=== PATIENT | female | born 1995 | race Two or more races ===

== ENCOUNTER 2024-01-27 19:32 | Emergency (ER) | payer OTHER ==
[~2024-01-27] VITALS: Ht 157.5 cm; Wt 78.9 kg
[2024-01-27] MEDS ORDERED: TETANUS & DIPHTHERIA TOX,ADULT 0.5 ML VIAL IM ONE (22:00)
[2024-01-27 23:13] LABS: HEMATOCRIT 30.2 % (36.0-45.00); HEMOGLOBIN 9.4 g/dL (12.0-15.00); MEAN CORPUSCULAR HEMOGLOBIN 21.6 pg (27.00-32.0); MEAN CORPUSCULAR HGB CONC 31.3 g/dl (32.0-36.0); PLATELET COUNT 283 K/uL (150-450); RED BLOOD COUNT 4.36 M/uL (4.00-6.00); RED CELL DISTRIBUTION WIDTH 17.5 % (11.5-14.5)
[2024-01-27 23:14] LABS: MEAN CELL VOLUME 69.2 fL (80.00-100.00)
[2024-01-27 23:49] LABS: CALCIUM 9.4 mg/dL (8.5-10.1); CREATININE SERUM 0.59 mg/dL (0.55-1.02); GFR 123.21; POTASSIUM 3.53 mEq/L (3.5-5.1)
[2024-01-28] MEDS ORDERED: MUPIROCIN1 G1 TOP (02:26)
[2024-01-28] MEDS ORDERED: CEPHALEXIN500 MG PO (02:26)
== END 2024-01-28 02:29 ==
LOC: ER 19:32
PROVIDERS: General Practice
DX: O26.891 Other specified pregnancy related conditions, first trimester (principal); S61.101A Unspecified open wound of right thumb with damage to nail, initial encounter; S39.91XA Unspecified injury of abdomen, initial encounter; W18.39XA Other fall on same level, initial encounter; Y93.89 Activity, other specified; Y92.89 Other specified places as the place of occurrence of the external cause; Y99.9 Unspecified external cause status; Z3A.08 8 weeks gestation of pregnancy; Z88.6 Allergy status to analgesic agent

== ENCOUNTER → 2024-01-29 | Emergency (ER) | payer OTHER ==
[~2024-01-29] MED LIST: CEPHALEXIN500 MG PO; MUPIROCIN1 G1 TOP
== END | disposition home or self-care (01) ==
LOC: ER 09:31
DX: O99.891 Other specified diseases and conditions complicating pregnancy (principal); Z3A.01 Less than 8 weeks gestation of pregnancy; Z88.6 Allergy status to analgesic agent; S61.121A Laceration with foreign body of right thumb with damage to nail, initial encounter; W18.39XA Other fall on same level, initial encounter; Y93.89 Activity, other specified; Y92.89 Other specified places as the place of occurrence of the external cause; S39.91XA Unspecified injury of abdomen, initial encounter

== ENCOUNTER 2024-03-06 10:47 | Outpatient (CLI) | payer OTHER | END 2024-03-06 10:48 | disposition home or self-care (01) | LOC: PRENATAL 10:47 | PROVIDERS: ATTEND Obstetrics & Gynecology Maternal & Fetal Medicine | DX: O36.80X0 Pregnancy with inconclusive fetal viability, not applicable or unspecified (principal); Z36.82 Encounter for antenatal screening for nuchal translucency; Z36.9 Encounter for antenatal screening, unspecified; Z3A.13 13 weeks gestation of pregnancy ==

== ENCOUNTER 2024-06-16 09:22 | Outpatient (CLI) | payer OTHER ==
[~2024-06-16] VITALS: Ht 157.5 cm; Wt 81.6 kg
[2024-06-16] MEDS ORDERED: PRENATAL TABLE1 EAC1 PO (09:25)
== END 2024-06-16 13:48 | disposition home or self-care (01) ==
LOC: OBS/DEL 09:22
PROVIDERS: ATTEND Obstetrics & Gynecology
DX: O36.5920 Maternal care for other known or suspected poor fetal growth, second trimester, not applicable or unspecified (principal); Z3A.27 27 weeks gestation of pregnancy; O26.849 Uterine size-date discrepancy, unspecified trimester; O36.8199 Decreased fetal movements, unspecified trimester, other fetus; O36.5990 Maternal care for other known or suspected poor fetal growth, unspecified trimester, not applicable or unspecified; O60.00 Preterm labor without delivery, unspecified trimester

== ENCOUNTER 2024-07-02 17:22 | Emergency (ER) | payer OTHER ==
[~2024-07-02] VITALS: Ht 157.5 cm; Wt 83.5 kg
[~2024-07-02 17:22] MED LIST changes: +PRENATAL TABLE1 EAC1 PO
[2024-07-02 18:39] LABS: URINE APPEARANCE Cloudy; URINE BILIRRUBIN Negative (NEGATIVE); URINE BLOOD Moderate; URINE COLOR Dark Yellow; URINE GLUCOSE Negative (NEGATIVE); URINE KETONE Trace (NEGATIVE); URINE LEUKOCYTE Moderate; URINE NITRATE Negative; URINE PROTEIN 30 (NEGATIVE)
[2024-07-02 18:43] LABS: URINE BACTERIA 2703.7 uL (0.0-1933); URINE EPITHELIAL CELLS 47.7 uL (0.0-38.8); URINE RBC 123.6 uL (0.0-20.8); URINE WBC 1891.3 uL (0.0-23.2)
[2024-07-02 18:52] LABS: URINE CAST 0.15 uL (0.0-1.40)
[2024-07-02] MEDS ORDERED: MACRODANTIN100 M1 PO (19:11)
== END 2024-07-02 22:26 | disposition home or self-care (01) ==
LOC: ER 17:24
DX: N39.0 Urinary tract infection, site not specified (principal); Z88.6 Allergy status to analgesic agent

== ENCOUNTER → 2024-07-10 09:25 | Outpatient (CLI) | payer OTHER ==
[~2024-07-10 09:25] MED LIST changes: +MACRODANTIN100 M1 PO
== END | disposition home or self-care (01) ==
LOC: PRENATAL 09:25
PROVIDERS: ATTEND Obstetrics & Gynecology Maternal & Fetal Medicine
DX: O26.843 Uterine size-date discrepancy, third trimester (principal); O36.8130 Decreased fetal movements, third trimester, not applicable or unspecified; O36.5930 Maternal care for other known or suspected poor fetal growth, third trimester, not applicable or unspecified; O99.013 Anemia complicating pregnancy, third trimester; Z3A.31 31 weeks gestation of pregnancy

== ENCOUNTER 2024-08-07 10:15 | Inpatient (IN) | payer OTHER ==
[~2024-08-07] VITALS: Ht 157.5 cm; Wt 85.7 kg
[2024-08-07 15:34] VITALS: BP 90/50
[2024-08-07] MEDS ORDERED: RINGERS SOLUTION,LACTATED 1,000 ML IV SCH (15:45)
[2024-08-07] MEDS ORDERED: BETAMETHASONE ACETATE,SOD PHOS 30 MG/5 ML ML IM SCH (16:00)
[2024-08-07 16:40] LABS: HEMATOCRIT 36.1 % (36.0-45.00); HEMOGLOBIN 12.2 g/dL (12.0-15.00); MEAN CELL VOLUME 86.9 fL (80.00-100.00); MEAN CORPUSCULAR HEMOGLOBIN 29.4 pg (27.00-32.0); MEAN CORPUSCULAR HGB CONC 33.8 g/dl (32.0-36.0); PLATELET COUNT 155 K/uL (150-450); RED BLOOD COUNT 4.16 M/uL (4.00-6.00)
[2024-08-07 16:41] LABS: RED CELL DISTRIBUTION WIDTH 25.4 % (11.5-14.5)
[2024-08-07 16:43] LABS: URINE APPEARANCE Cloudy; URINE BILIRRUBIN Small (NEGATIVE); URINE BLOOD Negative; URINE COLOR Dark Yellow; URINE GLUCOSE Negative (NEGATIVE); URINE KETONE Trace (NEGATIVE); URINE LEUKOCYTE Moderate; URINE NITRATE Negative; URINE PROTEIN Trace (NEGATIVE)
[2024-08-07 16:46] LABS: URINE CAST 2.59 uL (0.0-1.40); URINE RBC 15.1 uL (0.0-20.8); URINE WBC 98.9 uL (0.0-23.2)
[2024-08-07 16:49] LABS: INR 0.94; PARTIAL THROMBOPLASTIN TIME 27.5 SECONDS (22.0-34.0); PROTHROMBIN TIME 10.3 SECONDS (9.0-11.5)
[2024-08-07 16:56] LABS: ALBUMIN 2.7 gm/dL (3.4-5.0); BILIRUBIN TOTAL 0.36 mg/dL (0.3-1.2); CALCIUM 8.9 mg/dL (8.5-10.1); CREATININE SERUM 0.62 mg/dL (0.55-1.02); GFR 115.46; GLOBULINA 3.7 G/DL (2.4-3.5); POTASSIUM 3.83 mEq/L (3.5-5.1); TOTAL PROTEIN 6.4 gm/dL (6.4-8.2)
[2024-08-07 17:35] LABS: URINE BACTERIA > 9821.5 uL (0.0-1933); URINE EPITHELIAL CELLS > 201.7 uL (0.0-38.8)
[2024-08-07] MEDS ORDERED: CEFAZOLIN SODIUM 1,000 MG VIAL IV ONE (18:15)
[2024-08-07 20:14] VITALS: BP 101/67
[2024-08-07 23:33] VITALS: BP 90/60
[2024-08-08] MEDS ORDERED: CEFAZOLIN SODIUM 1,000 MG VIAL IV SCH (01:00)
[2024-08-08 03:19] VITALS: BP 93/57
[2024-08-08 06:35] VITALS: BP 111/60; O2SAT 98
[2024-08-08 11:46] VITALS: BP 108/62
[2024-08-08 15:46] VITALS: BP 95/60
[2024-08-08 20:13] VITALS: BP 86/49
[2024-08-08 23:25] VITALS: BP 105/61
[2024-08-09 03:30] VITALS: BP 98/58
[2024-08-09 07:35] VITALS: BP 92/56
[2024-08-09 11:30] VITALS: BP 90/50
[2024-08-09 15:23] VITALS: BP 99/60
[2024-08-09 19:48] VITALS: BP 95/60
[2024-08-09 23:35] VITALS: BP 110/63
[2024-08-10 03:00] VITALS: BP 103/64
[2024-08-10 07:37] VITALS: BP 91/57; O2SAT 100
[2024-08-10 11:34] VITALS: BP 95/58; O2SAT 100
[2024-08-10 15:44] VITALS: BP 90/60
[2024-08-10 19:50] VITALS: BP 93/55
[2024-08-10 23:55] VITALS: BP 101/55; O2SAT 99
[2024-08-11 03:15] VITALS: BP 101/56
[2024-08-11 06:17] VITALS: BP 105/69; O2SAT 99
[2024-08-11 12:24] VITALS: BP 105/66
[2024-08-11] MEDS ORDERED: CITRIC ACID/SODIUM CITRATE 30 ML BLIST.PACK PO ONE (14:27)
[2024-08-11] MEDS ORDERED: CITRIC ACID/SODIUM CITRATE 30 ML BLIST.PACK PO STA (14:32)
[2024-08-11] MEDS ORDERED: ERYTHROMYCIN BASE OPHT 1GM EACH TUBE OP ONE ×2 (14:45→15:01)
[2024-08-11] MEDS ORDERED: OXYTOCIN 10 UNITS/ML VIAL IV ONE (14:45)
[2024-08-11] MEDS ORDERED: OXYTOCIN 10 UNITS/ML VIAL ONE (15:02)
[2024-08-11] MEDS ORDERED: CEFAZOLIN SODIUM 1,000 MG VIAL ONE ×2 (15:16→17:24)
[2024-08-11] MEDS ORDERED: ACETAMINOPHEN 325 MG TABLET PO PRN (16:15)
[2024-08-11] MEDS ORDERED: MORPHINE SULFATE 4 MG/ML VIAL IV PRN (16:15)
[2024-08-11] MEDS ORDERED: DOCUSATE SODIUM 100MG CAP PO SCH (17:00)
[2024-08-11] MEDS ORDERED: MORPHINE SULFATE 4 MG/ML VIAL IV ONE ×2 (17:05→19:05)
[2024-08-11] MEDS ORDERED: CEFAZOLIN SODIUM 1,000 MG VIAL IV ONE (17:30)
[2024-08-11] MEDS ORDERED: SIMETHICONE 125 MG CAPSULE PO SCH (18:00)
[2024-08-11] MEDS ORDERED: RINGERS SOLUTION,LACTATED 1,000 ML IV SCH (19:45)
[2024-08-11] MEDS ORDERED: OXYTOCIN 1,000 ML IV SCH (19:45)
[2024-08-11 20:14] LABS: HEMATOCRIT 37.4 % (36.0-45.00); HEMOGLOBIN 12.5 g/dL (12.0-15.00); MEAN CELL VOLUME 87.8 fL (80.00-100.00); MEAN CORPUSCULAR HEMOGLOBIN 29.3 pg (27.00-32.0); MEAN CORPUSCULAR HGB CONC 33.4 g/dl (32.0-36.0); PLATELET COUNT 152 K/uL (150-450); RED BLOOD COUNT 4.27 M/uL (4.00-6.00); RED CELL DISTRIBUTION WIDTH 24.2 % (11.5-14.5)
[2024-08-12] MEDS ORDERED: MORPHINE SULFATE 4 MG/ML VIAL IV ONE (00:05)
[2024-08-12] MEDS ORDERED: OXYTOCIN 10 UNITS/ML VIAL ONE (00:12)
[2024-08-12 01:00] VITALS: BP 124/83
[2024-08-12 08:00] VITALS: BP 114/82
[2024-08-12] MEDS ORDERED: GABAPENTIN 300 MG CAPSULE PO PRN (09:00)
[2024-08-12 19:29] VITALS: BP 116/72
[2024-08-13] VITALS: BP 131/80
[2024-08-13 08:00] VITALS: BP 116/67
[2024-08-13 18:07] VITALS: BP 117/81
[2024-08-14 02:23] VITALS: BP 99/65
[2024-08-14 09:00] VITALS: BP 113/76
[2024-08-14] MEDS ORDERED: FF) RHO(D) IMMUNE GLOBULIN (POM) IM NR (11:30)
== END 2024-08-14 13:36 | disposition home or self-care (01) | DRG 788 ==
LOC: PRENATAL 10:15 → LDR 15:34 → OB/GYN 15:34 → LDR 08-08 10:47 → OB/GYN 08-11 20:43
PROVIDERS: ADMIT Obstetrics & Gynecology; ATTEND Obstetrics & Gynecology
PROC: 4A1HXCZ Monitoring of Products of Conception, Cardiac Rate, External Approach (ICD-10-PCS; 2024-08-07)
PROC: BY4FZZZ Ultrasonography of Third Trimester, Single Fetus (ICD-10-PCS; 2024-08-07)
PROC: 10D00Z1 Extraction of Products of Conception, Low, Open Approach (ICD-10-PCS; principal; 2024-08-11 14:30)
DX: O41.03X0 Oligohydramnios, third trimester, not applicable or unspecified (principal); O36.8330 Maternal care for abnormalities of the fetal heart rate or rhythm, third trimester, not applicable or unspecified; O26.843 Uterine size-date discrepancy, third trimester; O36.8130 Decreased fetal movements, third trimester, not applicable or unspecified; Z3A.35 35 weeks gestation of pregnancy; Z37.0 Single live birth; Z20.822 Contact with and (suspected) exposure to COVID-19

== ENCOUNTER 2025-03-20 10:59 | Emergency (ER) | payer OTHER ==
[~2025-03-20] VITALS: Ht 157.5 cm; Wt 85.7 kg
[2025-03-20 14:01] LABS: PH,URINE 6.5 (5.0-8.0); URINE APPEARANCE Cloudy; URINE BILIRRUBIN Negative (NEGATIVE); URINE BLOOD Small; URINE COLOR Yellow; URINE GLUCOSE Negative (NEGATIVE); URINE KETONE Negative (NEGATIVE); URINE LEUKOCYTE Large; URINE NITRATE Negative; URINE PROTEIN Negative (NEGATIVE); URINE UROBILINOGEN 0.2 E.U./dl
[2025-03-20 14:04] LABS: URINE BACTERIA 518.8 uL (0.0-1933); URINE RBC 41.3 uL (0.0-20.8); URINE WBC 1449.7 uL (0.0-23.2)
[2025-03-20] MEDS ORDERED: levoFLOXacin IN DEXTROSE 5 % 500MG/100ML PIGGYBAG IV ONE ×2 (15:15→15:16)
== END 2025-03-20 17:00 | disposition home or self-care (01) ==
LOC: ER 10:59
PROVIDERS: General Practice
DX: N39.0 Urinary tract infection, site not specified (principal); Z88.6 Allergy status to analgesic agent; Z91.013 Allergy to seafood